=== PATIENT | female | born 1960 | race Caucasian/White ===

== ENCOUNTER 2019-10-25 02:05 | Inpatient (IN) ==
[2019-10-25] MEDS ORDERED: Naloxone 0.4 MG/ML INJ IVP PRN (04:42)
[2019-10-25] MEDS ORDERED: Midazolam HCl 50 MG/100 ML IV.SOLN IVC SCH (04:45)
[2019-10-25 04:58] LABS: ABG Base Excess -1 mEq/L (-2 to 3); ABG HCO3 26 mEq/L (21-27); ABG Oxygen Saturation 100 % (95-98); ABG PCO2 52 mmHg (35-45); ABG PO2 228 mmHg (85-104); ABG TCO2 27 mEq/L (20-26); Blood Gas Modality AF; Blood Gas VT 450 cc
[2019-10-25] MEDS: FentaNYL (PF) 1,000 MCG/100 ML IV.SOLN IVC SCH (06:00)
[2019-10-25 06:10] LABS: Basophils % 0.2 %; Eosinophils % 0.1 %; Hematocrit 29.8 % (35.3-44.9); Hemoglobin 9.4 g/dL (11.5-15.4); Immature Granulocytes % 0.3 % (0-4); Lymphocytes # 1.6 K/mcL (0.6-4.6); Lymphocytes % 13.1 %; Mean Corpuscular HGB Conc 31.5 g/dL (31.6-35.5); Mean Corpuscular Volume 82.3 fL (83.0-100.0); Mean Platelet Volume 8.9 fL (9.4-12.4); Monocytes % 7.9 %; Neutrophils # 9.7 K/mcL (1.6-8.9); Platelet Count 458 K/mcL (140-400); Red Blood Count 3.62 M/mcL (3.82-4.97); Red Cell Distribution Width 17.8 % (11.5-14.5); Segmented Neutrophils % 78.4 %; White Blood Count 12.4 K/mcL (4.3-11.1)
[2019-10-25 06:17] LABS: INR 0.9; Prothrombin Time 10.7 Seconds (9.4-12.1)
[2019-10-25 06:19] LABS: Activated Partial Thrombo Time 32.2 Seconds (26.0-36.0)
[2019-10-25] MEDS ORDERED: 0.9 % Sodium Chloride 1,000 ML IVC SCH ×2 (06:30→08:00)
[2019-10-25 06:49] LABS: Alanine Aminotransferase 14 Units/L (7-52); Albumin 4.1 g/dL (3.5-5.7); Albumin/Globulin Ratio 1.6 (1.1-2.2); Alkaline Phosphatase 107 Units/L (34-104); Aspartate Amino Transferase 17 Units/L (13-39); BUN/Creatinine Ratio 9 (6-26); Bilirubin,Total 0.4 mg/dL (0.3-1.0); Blood Urea Nitrogen 7 mg/dL (8-23); Calcium 8.6 mg/dL (8.6-10.3); Carbon Dioxide 25 mEq/L (23-29); Chloride 94 mEq/L (98-107); Globulin 2.5 g/dL (2.4-3.5); Glucose 159 mg/dL (70-105); Osmolality,Calculated 265 (280-300); Potassium 3.7 mEq/L (3.5-5.1); Sodium 127 mEq/L (136-145); Total Protein 6.6 g/dL (6.4-8.9); eGFR For African Americans > 60 (> 60); eGFR For Non-African Americans > 60 (> 60)
[2019-10-25] MEDS: Norepinephrine 4 MG/254 ML IV.SOLN IVC SCH (07:29)
[2019-10-25] MEDS: *HR* Heparin 5,000 UNIT/ML VIAL SQ SCH ×3 (07:43→21:48)
[2019-10-25 07:50] LABS: Adenovirus Not Detected (Not Detect); Bordetella Pertussis Not Detected (Not Detect); Chlamydophila pneumoniae Not Detected (Not Detect); Coronavirus 229E Not Detected (Not Detect); Coronavirus HKU1 Not Detected (Not Detect); Coronavirus NL63 Not Detected (Not Detect); Coronavirus OC43 Not Detected (Not Detect); Human Metapneumovirus Not Detected (Not Detect); Human Rhinovirus/Enterovirus Not Detected (Not Detect); Influenza A Subtype 2009 H1 Not Detected (Not Detect); Influenza B Not Detected (Not Detect); Mycoplasma pneumoniae Not Detected (Not Detect); Parainfluenza Virus 1 Not Detected (Not Detect); Parainfluenza Virus 2 Not Detected (Not Detect); Parainfluenza Virus 3 Not Detected (Not Detect); Parainfluenza Virus 4 Not Detected (Not Detect); Respiratory Syncytial Virus Not Detected (Not Detect)
[2019-10-25] MEDS ORDERED: Ipratropium/Albuterol Neb 3 ML IH PRN (08:48)
[2019-10-25] MEDS ORDERED: Albuterol 2.5 MG/3 ML NEBULIZER IH PRN (08:49)
[2019-10-25] MEDS ORDERED: MethylPREDNISolone 40 MG/ML VIAL IVP SCH (09:00)
[2019-10-25] MEDS: Dexmedetomidine HCl 400 MCG/100 ML MLS IVC SCH (09:56)
[2019-10-25] MEDS: Pantoprazole 40 MG VIAL IVP SCH (09:57)
[2019-10-25 10:47] LABS: Alanine Aminotransferase 12 Units/L (7-52); Albumin 3.7 g/dL (3.5-5.7); Albumin/Globulin Ratio 1.8 (1.1-2.2); Alkaline Phosphatase 93 Units/L (34-104); Aspartate Amino Transferase 15 Units/L (13-39); Bilirubin,Indirect 0.4 mg/dL (0.0-1.0); Bilirubin,Total 0.4 mg/dL (0.3-1.0); C-Reactive Protein < 5 mg/L (Less than 10); Creatine Kinase 113 Units/L (30-223); Ferritin < 8 ng/mL (10-120); Globulin 2.1 g/dL (2.4-3.5); Lactate Dehydrogenase 163 Units/L (140-271); Sodium 130 mEq/L (136-145); Total Protein 5.8 g/dL (6.4-8.9)
[2019-10-25] MEDS ORDERED: Artificial Tears SOLN 15 ML BOTTLE BOTH EYES PRN (10:50)
[2019-10-25 11:02] LABS: Lipase 7 Units/L (11-82)
[2019-10-25 11:16] LABS: Prothrombin Time 11.1 Seconds (9.4-12.1)
[2019-10-25 11:18] LABS: Activated Partial Thrombo Time 30.7 Seconds (26.0-36.0)
[2019-10-25] MEDS: Ipratropium/Albuterol Neb 3 ML IH SCH ×3 (11:34→21:21)
[2019-10-25] MEDS: Budesonide/Formoterol 80/4.5 1 PUFF INH IH SCH ×2 (11:34→21:21)
[2019-10-25] MEDS: Artificial Tears SOLN 15 ML BOTTLE BOTH EYES SCH ×4 (12:25→23:35)
[2019-10-25 13:09] LABS: BUN/Creatinine Ratio 8 (6-26); Blood Urea Nitrogen 7 mg/dL (8-23); Calcium 8.6 mg/dL (8.6-10.3); Carbon Dioxide 27 mEq/L (23-29); Chloride 98 mEq/L (98-107); Glucose 85 mg/dL (70-105); Osmolality,Calculated 267 (280-300); Potassium 3.8 mEq/L (3.5-5.1); Sodium 130 mEq/L (136-145); eGFR For African Americans > 60 (> 60); eGFR For Non-African Americans > 60 (> 60)
[2019-10-25] MEDS: Piperacillin/Tazobactam 3.375 GM in 0.9 % Sodium Chloride Mini Bag 100 ML IVPB SCH ×2 (16:18→23:34)
[2019-10-25] MEDS: Chlorhexidine Rinse 15 ML MOUTHWASH MM SCH (19:33)
[2019-10-25] MEDS: Isovue-370 500 ML BOTTLE IVP ONE (21:12)
[2019-10-26] MEDS: Artificial Tears SOLN 15 ML BOTTLE BOTH EYES SCH ×2 (02:41→07:42)
[2019-10-26] MEDS: Dexmedetomidine HCl 400 MCG/100 ML MLS IVC SCH (02:42)
[2019-10-26] MEDS: Ipratropium/Albuterol Neb 3 ML IH SCH ×4 (03:22→22:42)
[2019-10-26] MEDS: Norepinephrine 4 MG/254 ML IV.SOLN IVC SCH (03:39)
[2019-10-26] MEDS: FentaNYL (PF) 1,000 MCG/100 ML IV.SOLN IVC SCH (03:40)
[2019-10-26 03:45] LABS: Basophils # 0.1 K/mcL (0.0-0.2); Basophils % 0.4 %; Eosinophils % 0.1 %; Hematocrit 29.5 % (35.3-44.9); Hemoglobin 9.4 g/dL (11.5-15.4); Immature Granulocytes % 0.3 % (0-4); Lymphocytes # 0.9 K/mcL (0.6-4.6); Lymphocytes % 5.9 %; Mean Corpuscular HGB Conc 31.9 g/dL (31.6-35.5); Mean Corpuscular Hemoglobin 26.3 pg (28.0-33.3); Mean Corpuscular Volume 82.4 fL (83.0-100.0); Mean Platelet Volume 8.9 fL (9.4-12.4); Monocytes # 1.1 K/mcL (0.0-1.3); Monocytes % 7.2 %; Neutrophils # 13.4 K/mcL (1.6-8.9); Platelet Count 378 K/mcL (140-400); Red Blood Count 3.58 M/mcL (3.82-4.97); Red Cell Distribution Width 18.1 % (11.5-14.5); Segmented Neutrophils % 86.1 %; White Blood Count 15.5 K/mcL (4.3-11.1)
[2019-10-26 04:05] LABS: Alanine Aminotransferase 14 Units/L (7-52); Albumin 3.8 g/dL (3.5-5.7); Albumin/Globulin Ratio 1.4 (1.1-2.2); Alkaline Phosphatase 97 Units/L (34-104); Aspartate Amino Transferase 15 Units/L (13-39); BUN/Creatinine Ratio 8 (6-26); Bilirubin,Total 0.4 mg/dL (0.3-1.0); Blood Urea Nitrogen 6 mg/dL (8-23); Calcium 8.6 mg/dL (8.6-10.3); Carbon Dioxide 23 mEq/L (23-29); Chloride 97 mEq/L (98-107); Globulin 2.8 g/dL (2.4-3.5); Glucose 132 mg/dL (70-105); Magnesium 1.6 mg/dL (1.6-2.6); Osmolality,Calculated 269 (280-300); Phosphorous 3.6 mg/dL (2.7-4.5); Potassium 3.4 mEq/L (3.5-5.1); Sodium 130 mEq/L (136-145); Total Protein 6.6 g/dL (6.4-8.9); eGFR For African Americans > 60 (> 60); eGFR For Non-African Americans > 60 (> 60)
[2019-10-26 04:24] LABS: ABG Base Excess 2 mEq/L (-2 to 3); ABG HCO3 27 mEq/L (21-27); ABG Oxygen Saturation 94 % (95-98); ABG PCO2 44 mmHg (35-45); ABG PO2 71 mmHg (85-104); ABG TCO2 29 mEq/L (20-26); Blood Gas Modality AF; Blood Gas VT 450 cc
[2019-10-26] MEDS: *HR* Heparin 5,000 UNIT/ML VIAL SQ SCH ×3 (05:05→23:25)
[2019-10-26] MEDS: Chlorhexidine Rinse 15 ML MOUTHWASH MM SCH (07:41)
[2019-10-26] MEDS: Pantoprazole 40 MG VIAL IVP SCH (07:41)
[2019-10-26] MEDS: Piperacillin/Tazobactam 3.375 GM in 0.9 % Sodium Chloride Mini Bag 100 ML IVPB SCH ×2 (07:42→17:04)
[2019-10-26] MEDS: Budesonide/Formoterol 80/4.5 1 PUFF INH IH SCH ×2 (09:41→22:42)
[2019-10-26 16:02] LABS: Bilirubin,Urine Negative (Negative); Blood,Urine Moderate (Negative); Clarity,Urine Cloudy (Clear); Color,Urine Yellow (Yellow); Glucose,Urine (UA) Normal (Normal); Ketones,Urine 40 mg/dL (Negative); Leukocyte Esterase,Urine Trace (Negative); Nitrite,Urine Negative (Negative); PH,Urine 6.5 pH Units (5.0-8.0); Protein,Urine 30 mg/dL (Neg-Trace); Specific Gravity,Urine 1.023 (1.010-1.025); Urobilinogen,Urine Normal (Normal)
[2019-10-26 16:19] LABS: Hyaline Casts,Urine None Seen per lpf (None-Few); Squamous Epithelial Cell,Urine Few per lpf (None-Few); WBC,Urine 0-3 per hpf (0-3)
[2019-10-26 16:20] LABS: Bacteria,Urine Few per hpf (None-Few)
[2019-10-26] MEDS ORDERED: Acetaminophen/Butalbital/CaffeineTABLET PO PRN (16:43)
[2019-10-26 17:46] LABS: Thyroid Stimulating Hormone 0.527 mcIU/mL (0.340-5.600)
[2019-10-26] MEDS ORDERED: MOMETASONE IH SCH (21:00)
[2019-10-26] MEDS ORDERED: FORMOTEROL IH SCH (21:00)
[2019-10-26] MEDS ORDERED: [UNRECOGNIZED DRUG - OTHER] IH SCH (21:00)
[2019-10-26] MEDS: Gabapentin 300 MG CAPSULE PO SCH (21:59)
[2019-10-27] MEDS: Piperacillin/Tazobactam 3.375 GM in 0.9 % Sodium Chloride Mini Bag 100 ML IVPB SCH ×4 (00:01→23:34)
[2019-10-27] MEDS: Ipratropium/Albuterol Neb 3 ML IH SCH ×4 (03:43→22:49)
[2019-10-27 03:45] LABS: Basophils # 0.1 K/mcL (0.0-0.2); Basophils % 0.3 %; Eosinophils # 0.3 K/mcL (0.0-0.6); Hematocrit 30.2 % (35.3-44.9); Hemoglobin 9.8 g/dL (11.5-15.4); Immature Granulocytes % 0.4 % (0-4); Lymphocytes # 1.3 K/mcL (0.6-4.6); Lymphocytes % 7.4 %; Mean Corpuscular HGB Conc 32.5 g/dL (31.6-35.5); Mean Corpuscular Hemoglobin 26.2 pg (28.0-33.3); Mean Corpuscular Volume 80.7 fL (83.0-100.0); Mean Platelet Volume 8.7 fL (9.4-12.4); Monocytes # 1.7 K/mcL (0.0-1.3); Monocytes % 9.8 %; Neutrophils # 13.7 K/mcL (1.6-8.9); Platelet Count 422 K/mcL (140-400); Red Blood Count 3.74 M/mcL (3.82-4.97); Red Cell Distribution Width 18.4 % (11.5-14.5); Segmented Neutrophils % 80.1 %; White Blood Count 17.1 K/mcL (4.3-11.1)
[2019-10-27 04:05] LABS: BUN/Creatinine Ratio 16 (6-26); Blood Urea Nitrogen 12 mg/dL (8-23); Calcium 9.7 mg/dL (8.6-10.3); Carbon Dioxide 22 mEq/L (23-29); Chloride 97 mEq/L (98-107); Glucose 92 mg/dL (70-105); Magnesium 1.8 mg/dL (1.6-2.6); Osmolality,Calculated 275 (280-300); Phosphorous 3.7 mg/dL (2.7-4.5); Potassium 3.4 mEq/L (3.5-5.1); Sodium 133 mEq/L (136-145); eGFR For African Americans > 60 (> 60); eGFR For Non-African Americans > 60 (> 60)
[2019-10-27] MEDS: *HR* Heparin 5,000 UNIT/ML VIAL SQ SCH ×3 (06:02→19:38)
[2019-10-27] MEDS ORDERED: NON-FORMULARY MEDICATION 1 EACH EACH (Omeprazole [Prilosec] 40 MG) PO SCH (09:00)
[2019-10-27] MEDS ORDERED: Multivit/Ca/Min/Fe/FA 1 TAB TABLET PO SCH (09:00)
[2019-10-27] MEDS ORDERED: Loratadine 10 MG TABLET PO SCH (09:00)
[2019-10-27] MEDS: Pantoprazole 40 MG VIAL IVP SCH (09:35)
[2019-10-27] MEDS: Budesonide/Formoterol 80/4.5 1 PUFF INH IH SCH ×2 (09:42→22:49)
[2019-10-27] MEDS ORDERED: diazePAM 10 MG/2 ML SYRINGE IVP ONE ×2 (11:09→12:15)
[2019-10-27] MEDS: Gabapentin 300 MG CAPSULE PO SCH ×3 (11:21→19:37)
[2019-10-27] MEDS ORDERED: cefTRIAXone 1,000 MG in 0.9 % Sodium Chloride Mini Bag 100 ML IVPB ONE (12:41)
[2019-10-27] MEDS ORDERED: Acyclovir 500 MG in D5% in Water 100 ML IVPB SCH (13:00)
[2019-10-27 13:09] LABS: Appearance,CSF Clear (Clear); Red Blood Cell,CSF < 2000 RBC/mcL
[2019-10-27] MEDS ORDERED: Albuterol 2.5 MG/3 ML NEBULIZER IH PRN (13:23)
[2019-10-27] MEDS ORDERED: Naloxone 0.4 MG/ML INJ IVP PRN (13:23)
[2019-10-27 13:31] LABS: Glucose,CSF 66 mg/dL (40-70); Total Protein,CSF 48 mg/dL (15-45)
[2019-10-27] MEDS ORDERED: Potassium Chloride 40 MEQ, Lidocaine 1% 2 ML in 0.9 % Sodium Chloride 500 ML IVPB ONE (14:17)
[2019-10-27] MEDS: *HR* Metoprolol 5 MG/5 ML VIAL IVP PRN (14:17)
[2019-10-27] MEDS ORDERED: *HR* Metoprolol 5 MG/5 ML VIAL IVP ONE (14:20)
[2019-10-27] MEDS: D5% in Lactated Ringers 1,000 ML IVC SCH (14:33)
[2019-10-27 23:26] LABS: Hematocrit 28.8 % (35.3-44.9); Hemoglobin 9.1 g/dL (11.5-15.4)
[2019-10-28] MEDS: D5% in Lactated Ringers 1,000 ML IVC SCH ×3 (03:13→23:11)
[2019-10-28] MEDS: Ipratropium/Albuterol Neb 3 ML IH SCH ×4 (03:39→22:00)
[2019-10-28 05:44] LABS: Basophils # 0.1 K/mcL (0.0-0.2); Basophils % 0.5 %; Eosinophils # 0.1 K/mcL (0.0-0.6); Eosinophils % 0.8 %; Hematocrit 27.8 % (35.3-44.9); Hemoglobin 8.7 g/dL (11.5-15.4); Immature Granulocytes % 0.3 % (0-4); Lymphocytes # 1.4 K/mcL (0.6-4.6); Lymphocytes % 11.1 %; Mean Corpuscular HGB Conc 31.3 g/dL (31.6-35.5); Mean Corpuscular Hemoglobin 25.7 pg (28.0-33.3); Mean Corpuscular Volume 82.2 fL (83.0-100.0); Mean Platelet Volume 8.6 fL (9.4-12.4); Monocytes # 1.3 K/mcL (0.0-1.3); Monocytes % 10.4 %; Neutrophils # 9.9 K/mcL (1.6-8.9); Platelet Count 385 K/mcL (140-400); Red Blood Count 3.38 M/mcL (3.82-4.97); Red Cell Distribution Width 18.3 % (11.5-14.5); Segmented Neutrophils % 76.9 %; White Blood Count 12.8 K/mcL (4.3-11.1)
[2019-10-28 06:04] LABS: Alanine Aminotransferase 16 Units/L (7-52); Albumin 3.8 g/dL (3.5-5.7); Albumin/Globulin Ratio 1.4 (1.1-2.2); Alkaline Phosphatase 95 Units/L (34-104); Aspartate Amino Transferase 32 Units/L (13-39); BUN/Creatinine Ratio 20 (6-26); Bilirubin,Total 0.6 mg/dL (0.3-1.0); Blood Urea Nitrogen 14 mg/dL (8-23); Calcium 9.3 mg/dL (8.6-10.3); Carbon Dioxide 24 mEq/L (23-29); Chloride 106 mEq/L (98-107); Globulin 2.8 g/dL (2.4-3.5); Glucose 124 mg/dL (70-105); Magnesium 1.9 mg/dL (1.6-2.6); Osmolality,Calculated 290 (280-300); Phosphorous 2.9 mg/dL (2.7-4.5); Potassium 3.3 mEq/L (3.5-5.1); Sodium 139 mEq/L (136-145); Total Protein 6.6 g/dL (6.4-8.9); eGFR For African Americans > 60 (> 60); eGFR For Non-African Americans > 60 (> 60)
[2019-10-28] MEDS: Pantoprazole 40 MG VIAL IVP SCH (09:09)
[2019-10-28] MEDS: Piperacillin/Tazobactam 3.375 GM in 0.9 % Sodium Chloride Mini Bag 100 ML IVPB SCH ×3 (09:09→23:12)
[2019-10-28] MEDS: Haloperidol Lactate 5 MG/ML VIAL IVP PRN ×2 (09:11→20:34)
[2019-10-28] MEDS: Multivit/Ca/Min/Fe/FA 1 TAB TABLET PO SCH (09:12)
[2019-10-28] MEDS: Gabapentin 300 MG CAPSULE PO SCH (09:12)
[2019-10-28] MEDS: Loratadine 10 MG TABLET PO SCH (09:13)
[2019-10-28 10:56] LABS: Hemoglobin 8.7 g/dL (11.5-15.4)
[2019-10-28] MEDS: Budesonide/Formoterol 80/4.5 1 PUFF INH IH SCH ×2 (10:59→22:00)
[2019-10-28] MEDS: Thiamine (B-1) 100 MG in 0.9 % Sodium Chloride 50 ML IVPB SCH (13:58)
[2019-10-29] MEDS: *HR* Metoprolol 5 MG/5 ML VIAL IVP PRN (03:33)
[2019-10-29] MEDS: Haloperidol Lactate 5 MG/ML VIAL IVP PRN ×2 (03:33→21:38)
[2019-10-29 03:50] LABS: VBG HCO3 24 mEq/L (21-27); VBG PCO2 35 mmHg (41-51); VBG PH 7.46 pH Units (7.32-7.42); VBG PO2 117 mmHg (25-50)
[2019-10-29 03:58] LABS: Basophils # 0.1 K/mcL (0.0-0.2); Basophils % 0.7 %; Eosinophils # 0.2 K/mcL (0.0-0.6); Eosinophils % 1.4 %; Hematocrit 30.7 % (35.3-44.9); Hemoglobin 9.6 g/dL (11.5-15.4); Immature Granulocytes % 0.5 % (0-4); Lymphocytes # 1.7 K/mcL (0.6-4.6); Lymphocytes % 11.9 %; Mean Corpuscular HGB Conc 31.3 g/dL (31.6-35.5); Mean Corpuscular Hemoglobin 25.7 pg (28.0-33.3); Mean Corpuscular Volume 82.1 fL (83.0-100.0); Mean Platelet Volume 9.1 fL (9.4-12.4); Monocytes # 1.3 K/mcL (0.0-1.3); Monocytes % 9.3 %; Neutrophils # 10.5 K/mcL (1.6-8.9); Platelet Count 426 K/mcL (140-400); Red Blood Count 3.74 M/mcL (3.82-4.97); Red Cell Distribution Width 18.3 % (11.5-14.5); Segmented Neutrophils % 76.2 %; White Blood Count 13.8 K/mcL (4.3-11.1)
[2019-10-29 04:15] LABS: Alanine Aminotransferase 19 Units/L (7-52); Albumin 3.9 g/dL (3.5-5.7); Albumin/Globulin Ratio 1.2 (1.1-2.2); Alkaline Phosphatase 93 Units/L (34-104); Aspartate Amino Transferase 27 Units/L (13-39); BUN/Creatinine Ratio 13 (6-26); Bilirubin,Total 0.5 mg/dL (0.3-1.0); Blood Urea Nitrogen 9 mg/dL (8-23); Calcium 9.5 mg/dL (8.6-10.3); Carbon Dioxide 23 mEq/L (23-29); Chloride 103 mEq/L (98-107); Globulin 3.2 g/dL (2.4-3.5); Glucose 140 mg/dL (70-105); Magnesium 1.6 mg/dL (1.6-2.6); Osmolality,Calculated 285 (280-300); Potassium 3.4 mEq/L (3.5-5.1); Sodium 137 mEq/L (136-145); Total Protein 7.1 g/dL (6.4-8.9); eGFR For African Americans > 60 (> 60); eGFR For Non-African Americans > 60 (> 60)
[2019-10-29] MEDS: Ipratropium/Albuterol Neb 3 ML IH SCH (04:20)
[2019-10-29] MEDS ORDERED: DilTIAZem 50 MG/50 ML IV.SOLN IVC SCH (04:45)
[2019-10-29 04:58] LABS: Folate > 22.3 ng/mL (3.0-16.0); Vitamin B12 609 pg/mL (250-1100)
[2019-10-29] MEDS ORDERED: D5% in 0.9% NACL 1,000 ML IVC SCH (05:00)
[2019-10-29] MEDS: *HR* Enoxaparin 40 MG/0.4 ML SYRINGE SQ SCH (05:04)
[2019-10-29] MEDS: Loratadine 10 MG TABLET PO SCH (07:47)
[2019-10-29] MEDS: Multivit/Ca/Min/Fe/FA 1 TAB TABLET PO SCH (07:48)
[2019-10-29] MEDS: Piperacillin/Tazobactam 3.375 GM in 0.9 % Sodium Chloride Mini Bag 100 ML IVPB SCH ×3 (08:00→23:19)
[2019-10-29] MEDS: Pantoprazole 40 MG VIAL IVP SCH (08:01)
[2019-10-29] MEDS: Potassium Chloride 40 MEQ in D5% in 0.45% NACL 1,000 ML IVC SCH ×2 (08:09→21:38)
[2019-10-29] MEDS: Thiamine (B-1) 100 MG in 0.9 % Sodium Chloride 50 ML IVPB SCH (09:04)
[2019-10-29] MEDS: Budesonide/Formoterol 80/4.5 1 PUFF INH IH SCH ×2 (09:57→19:32)
[2019-10-29] MEDS: *HR* Metoprolol 5 MG/5 ML VIAL IVP SCH ×3 (16:42→23:19)
[2019-10-29] MEDS: Acetaminophen/Butalbital/CaffeineTABLET PO PRN (22:26)
[2019-10-30] MEDS: *HR* Enoxaparin 40 MG/0.4 ML SYRINGE SQ SCH (04:52)
[2019-10-30] MEDS: *HR* Metoprolol 5 MG/5 ML VIAL IVP SCH ×3 (04:52→18:38)
[2019-10-30] MEDS: Acetaminophen/Butalbital/CaffeineTABLET PO PRN (04:52)
[2019-10-30] MEDS: Multivit/Ca/Min/Fe/FA 1 TAB TABLET PO SCH (08:02)
[2019-10-30] MEDS: Loratadine 10 MG TABLET PO SCH (08:02)
[2019-10-30] MEDS: Pantoprazole 40 MG VIAL IVP SCH (08:03)
[2019-10-30] MEDS: Piperacillin/Tazobactam 3.375 GM in 0.9 % Sodium Chloride Mini Bag 100 ML IVPB SCH ×2 (08:03→18:39)
[2019-10-30] MEDS: Thiamine (B-1) 100 MG TABLET PO SCH (08:37)
[2019-10-30 09:00] LABS: Basophils # 0.1 K/mcL (0.0-0.2); Eosinophils # 0.3 K/mcL (0.0-0.6); Eosinophils % 2.7 %; Hematocrit 32.6 % (35.3-44.9); Immature Granulocytes % 0.2 % (0-4); Lymphocytes # 1.6 K/mcL (0.6-4.6); Lymphocytes % 16.6 %; Mean Corpuscular HGB Conc 30.7 g/dL (31.6-35.5); Mean Corpuscular Hemoglobin 25.6 pg (28.0-33.3); Mean Corpuscular Volume 83.6 fL (83.0-100.0); Monocytes # 0.8 K/mcL (0.0-1.3); Monocytes % 8.1 %; Platelet Count 457 K/mcL (140-400); Red Cell Distribution Width 18.7 % (11.5-14.5); Segmented Neutrophils % 71.4 %; White Blood Count 9.8 K/mcL (4.3-11.1)
[2019-10-30 09:01] LABS: Alanine Aminotransferase 16 Units/L (7-52); Albumin 3.9 g/dL (3.5-5.7); Albumin/Globulin Ratio 1.4 (1.1-2.2); Alkaline Phosphatase 85 Units/L (34-104); Aspartate Amino Transferase 17 Units/L (13-39); BUN/Creatinine Ratio 16 (6-26); Bilirubin,Total 0.4 mg/dL (0.3-1.0); Blood Urea Nitrogen 10 mg/dL (8-23); Calcium 9.5 mg/dL (8.6-10.3); Carbon Dioxide 22 mEq/L (23-29); Chloride 104 mEq/L (98-107); Globulin 2.8 g/dL (2.4-3.5); Glucose 119 mg/dL (70-105); Osmolality,Calculated 280 (280-300); Potassium 3.7 mEq/L (3.5-5.1); Sodium 135 mEq/L (136-145); Total Protein 6.7 g/dL (6.4-8.9); eGFR For African Americans > 60 (> 60); eGFR For Non-African Americans > 60 (> 60)
[2019-10-30] MEDS: Budesonide/Formoterol 80/4.5 1 PUFF INH IH SCH ×2 (10:47→20:37)
[2019-10-31] MEDS: Piperacillin/Tazobactam 3.375 GM in 0.9 % Sodium Chloride Mini Bag 100 ML IVPB SCH ×2 (00:30→08:47)
[2019-10-31] MEDS: *HR* Metoprolol 5 MG/5 ML VIAL IVP SCH ×3 (00:30→14:19)
[2019-10-31 01:43] LABS: Hemoglobin 9.7 g/dL (11.5-15.4); Mean Corpuscular HGB Conc 30.3 g/dL (31.6-35.5); Mean Corpuscular Volume 85.8 fL (83.0-100.0); Mean Platelet Volume 8.8 fL (9.4-12.4); Platelet Count 460 K/mcL (140-400); Red Blood Count 3.73 M/mcL (3.82-4.97); Red Cell Distribution Width 18.7 % (11.5-14.5); White Blood Count 11.1 K/mcL (4.3-11.1)
[2019-10-31 02:02] LABS: BUN/Creatinine Ratio 19 (6-26); Blood Urea Nitrogen 13 mg/dL (8-23); Calcium 9.8 mg/dL (8.6-10.3); Carbon Dioxide 21 mEq/L (23-29); Chloride 103 mEq/L (98-107); Glucose 94 mg/dL (70-105); Osmolality,Calculated 280 (280-300); Potassium 3.5 mEq/L (3.5-5.1); Sodium 135 mEq/L (136-145); eGFR For African Americans > 60 (> 60); eGFR For Non-African Americans > 60 (> 60)
[2019-10-31] MEDS: *HR* Enoxaparin 40 MG/0.4 ML SYRINGE SQ SCH (06:02)
[2019-10-31] MEDS: Acetaminophen/Butalbital/CaffeineTABLET PO PRN ×3 (06:47→20:00)
[2019-10-31] MEDS: Loratadine 10 MG TABLET PO SCH (08:47)
[2019-10-31] MEDS: Thiamine (B-1) 100 MG TABLET PO SCH (08:47)
[2019-10-31] MEDS: Multivit/Ca/Min/Fe/FA 1 TAB TABLET PO SCH (08:47)
[2019-10-31] MEDS: Pantoprazole 40 MG VIAL IVP SCH (08:47)
[2019-10-31] MEDS: Budesonide/Formoterol 80/4.5 1 PUFF INH IH SCH ×2 (10:24→20:14)
[2019-11-01] MEDS ORDERED: Ibuprofen 600 MG TABLET PO ONE (00:34)
[2019-11-01] MEDS ORDERED: *HR* OxyCODONE Immed Rel 5 MG TABLET PO ONE (02:09)
[2019-11-01] MEDS: *HR* Enoxaparin 40 MG/0.4 ML SYRINGE SQ SCH (05:14)
[2019-11-01] MEDS ORDERED: Acetaminophen IV 1,000 MG/100 ML INFUS..BTL IVPB ONE (06:03)
[2019-11-01] MEDS: Budesonide/Formoterol 80/4.5 1 PUFF INH IH SCH (07:54)
[2019-11-01] MEDS: Loratadine 10 MG TABLET PO SCH (08:19)
[2019-11-01] MEDS: Thiamine (B-1) 100 MG TABLET PO SCH (08:20)
[2019-11-01] MEDS: Multivit/Ca/Min/Fe/FA 1 TAB TABLET PO SCH (08:20)
[2019-11-01 11:44] VITALS: BP 121/76
[2019-11-01] MEDS: Acetaminophen/Butalbital/CaffeineTABLET PO PRN (12:27)
== END 2019-11-01 15:32 | DRG 133 ==
LOC: 2NENU 04:23 → SUATTDRO 04:23 → ICNU 11:36 → 3NENU 10-27 17:35 → 2ANU 10-30 10:57
PROVIDERS: ADMIT Student in an Organized Health Care Education/Training Program; ATTEND Internal Medicine

== ENCOUNTER 2020-01-27 14:43 | Inpatient (IN) ==
[2020-01-27] MEDS ORDERED: Naloxone 0.4 MG/ML INJ IVP PRN (16:52)
[2020-01-27] MEDS ORDERED: Ipratropium/Albuterol Neb 3 ML IH PRN (17:24)
[2020-01-27] MEDS: Metoprolol XL (24 HR) Succ 50 MG TAB.ER.24H PO SCH (18:15)
[2020-01-27] MEDS: Nicotine 7 MG PATCH.TD24 TD SCH (18:15)
[2020-01-27] MEDS: Acetaminophen IV 1,000 MG/100 ML INFUS..BTL IVPB SCH (18:15)
[2020-01-27] MEDS: clonazePAM 1 MG TABLET PO SCH ×2 (18:15→20:51)
[2020-01-27] MEDS: Budesonide/Formoterol 160/4.5 1 PUFF INH IH SCH (20:06)
[2020-01-27] MEDS: *HR* Heparin 5,000 UNIT/ML VIAL SQ SCH (20:54)
[2020-01-27] MEDS: Gabapentin 300 MG CAPSULE PO SCH (20:54)
[2020-01-28] MEDS: Acetaminophen IV 1,000 MG/100 ML INFUS..BTL IVPB SCH ×2 (00:43→05:38)
[2020-01-28 03:06] LABS: Basophils % 0.5 %; Eosinophils % 0.5 %; Hematocrit 26.6 % (35.3-44.9); Hemoglobin 8.5 g/dL (11.5-15.4); Immature Granulocytes % 0.1 % (0-4); Lymphocytes # 2.6 K/mcL (0.6-4.6); Lymphocytes % 34.5 %; Mean Corpuscular Hemoglobin 25.4 pg (28.0-33.3); Mean Corpuscular Volume 79.6 fL (83.0-100.0); Mean Platelet Volume 9.1 fL (9.4-12.4); Monocytes # 0.7 K/mcL (0.0-1.3); Monocytes % 9.7 %; Neutrophils # 4.1 K/mcL (1.6-8.9); Platelet Count 339 K/mcL (140-400); Red Blood Count 3.34 M/mcL (3.82-4.97); Segmented Neutrophils % 54.7 %; White Blood Count 7.4 K/mcL (4.3-11.1)
[2020-01-28 03:25] LABS: BUN/Creatinine Ratio 9 (6-26); Blood Urea Nitrogen 9 mg/dL (8-23); Calcium 8.9 mg/dL (8.6-10.3); Carbon Dioxide 23 mEq/L (23-29); Chloride 95 mEq/L (98-107); Glucose 97 mg/dL (70-105); Osmolality,Calculated 259 (280-300); Potassium 3.9 mEq/L (3.5-5.1); Sodium 125 mEq/L (136-145); eGFR For African Americans > 60 (> 60); eGFR For Non-African Americans 56 (> 60)
[2020-01-28] MEDS: *HR* Heparin 5,000 UNIT/ML VIAL SQ SCH ×3 (05:17→22:08)
[2020-01-28] MEDS: Budesonide/Formoterol 160/4.5 1 PUFF INH IH SCH ×2 (08:18→20:00)
[2020-01-28] MEDS: clonazePAM 1 MG TABLET PO SCH ×3 (08:21→22:08)
[2020-01-28] MEDS: Metoprolol XL (24 HR) Succ 50 MG TAB.ER.24H PO SCH (08:21)
[2020-01-28] MEDS: Nicotine 7 MG PATCH.TD24 TD SCH (08:21)
[2020-01-28] MEDS: Gabapentin 300 MG CAPSULE PO SCH ×3 (08:21→22:08)
[2020-01-28] MEDS: Ringers Solution, Lactated 1,000 ML IVC SCH (09:36)
[2020-01-28 11:21] LABS: % Iron Saturation 18 % (15-50); Iron 79 mcg/dL (50-170); Transferrin 315 mg/dL (203-362)
[2020-01-28 11:39] LABS: Ferritin < 8 ng/mL (10-120)
[2020-01-28] MEDS: Acetaminophen/Butalbital/CaffeineTABLET PO PRN (17:15)
[2020-01-29] MEDS: Acetaminophen/Butalbital/CaffeineTABLET PO PRN ×3 (00:26→13:49)
[2020-01-29 01:51] LABS: Hematocrit 29.7 % (35.3-44.9); Hemoglobin 9.4 g/dL (11.5-15.4); Mean Corpuscular HGB Conc 31.6 g/dL (31.6-35.5); Mean Corpuscular Hemoglobin 25.2 pg (28.0-33.3); Mean Corpuscular Volume 79.6 fL (83.0-100.0); Mean Platelet Volume 9.7 fL (9.4-12.4); Platelet Count 321 K/mcL (140-400); Red Blood Count 3.73 M/mcL (3.82-4.97)
[2020-01-29 01:57] LABS: BUN/Creatinine Ratio 9 (6-26); Blood Urea Nitrogen 7 mg/dL (8-23); Calcium 8.9 mg/dL (8.6-10.3); Carbon Dioxide 21 mEq/L (23-29); Chloride 97 mEq/L (98-107); Glucose 87 mg/dL (70-105); Osmolality,Calculated 265 (280-300); Potassium 4.4 mEq/L (3.5-5.1); Sodium 129 mEq/L (136-145); White Blood Count 13.7 K/mcL (4.3-11.1); eGFR For African Americans > 60 (> 60); eGFR For Non-African Americans > 60 (> 60)
[2020-01-29] MEDS: Ringers Solution, Lactated 1,000 ML IVC SCH ×2 (03:43→05:54)
[2020-01-29] MEDS: *HR* Heparin 5,000 UNIT/ML VIAL SQ SCH ×2 (06:21→13:48)
[2020-01-29] MEDS: Budesonide/Formoterol 160/4.5 1 PUFF INH IH SCH ×2 (08:10→21:38)
[2020-01-29] MEDS: Gabapentin 300 MG CAPSULE PO SCH ×2 (08:12→13:49)
[2020-01-29] MEDS: clonazePAM 1 MG TABLET PO SCH ×2 (08:12→13:49)
[2020-01-29] MEDS: Metoprolol XL (24 HR) Succ 50 MG TAB.ER.24H PO SCH (08:13)
[2020-01-29] MEDS: Nicotine 7 MG PATCH.TD24 TD SCH (08:13)
[2020-01-29] MEDS ORDERED: Iron Sucrose Complex 200 MG in 0.9 % Sodium Chloride 100 ML IVPB SCH (09:00)
[2020-01-29] MEDS ORDERED: Lidocaine/EPI 1:100k 1% 20 ML VIAL ONE (17:34)
[2020-01-29] MEDS ORDERED: *HR* Propofol 200 MG/20 ML VIAL IVP ONE (18:14)
[2020-01-29] MEDS ORDERED: *HR* Succinylcholine 200 MG/10 ML VIAL IVP ONE (18:14)
[2020-01-29] MEDS ORDERED: Lidocaine -MPF 2% 2 ML VIAL ONE (18:14)
[2020-01-29] MEDS ORDERED: *HR* Midazolam HCl 2 MG/2 ML VIAL ONE (18:14)
[2020-01-29] MEDS ORDERED: *HR* FentaNYL (PF) 100 MCG/2 ML VIAL ONE (18:14)
[2020-01-29] MEDS ORDERED: Ondansetron 4 MG/2 ML VIAL ONE (18:14)
[2020-01-29] MEDS ORDERED: *HR* Rocuronium Bromide 50 MG/5 ML VIAL ONE (19:28)
[2020-01-29] MEDS ORDERED: EPHEDrine 50 MG/ML VIAL ONE (19:52)
[2020-01-29] MEDS ORDERED: Ondansetron 4 MG/2 ML VIAL IVP ONE ×2 (21:38→22:39)
[2020-01-29] MEDS ORDERED: *HR* OxyCODONE Immed Rel 5 MG TABLET PO PRN ×2 (21:38→22:39)
[2020-01-29] MEDS ORDERED: *HR* Promethazine 25 MG/ML VIAL IVP PRN ×2 (21:38→22:39)
[2020-01-29] MEDS: *HR* HYDROmorphone PF 0.5 MG/0.5 ML SYRINGE IVP PRN ×2 (22:11→22:42)
[2020-01-29] MEDS ORDERED: Ipratropium/Albuterol Neb 3 ML IH PRN (22:39)
[2020-01-29] MEDS ORDERED: *HR* HYDROmorphone PF 0.5 MG/0.5 ML SYRINGE IVP PRN (22:39)
[2020-01-29] MEDS ORDERED: Naloxone 0.4 MG/ML INJ IVP PRN (22:39)
[2020-01-30] MEDS: CeFAZolin 2 GM/120 ML BAG IVPB SCH ×2 (02:40→11:42)
[2020-01-30] MEDS: Ringers Solution, Lactated 1,000 ML IVC SCH (02:49)
[2020-01-30 05:19] LABS: Hematocrit 27.7 % (35.3-44.9); Hemoglobin 8.5 g/dL (11.5-15.4); Mean Corpuscular HGB Conc 30.7 g/dL (31.6-35.5); Mean Corpuscular Hemoglobin 25.1 pg (28.0-33.3); Mean Corpuscular Volume 81.7 fL (83.0-100.0); Mean Platelet Volume 9.7 fL (9.4-12.4); Platelet Count 317 K/mcL (140-400); Red Blood Count 3.39 M/mcL (3.82-4.97); Red Cell Distribution Width 17.6 % (11.5-14.5); White Blood Count 11.9 K/mcL (4.3-11.1)
[2020-01-30 05:41] LABS: BUN/Creatinine Ratio 8 (6-26); Blood Urea Nitrogen 7 mg/dL (8-23); Carbon Dioxide 24 mEq/L (23-29); Chloride 95 mEq/L (98-107); Glucose 91 mg/dL (70-105); Osmolality,Calculated 266 (280-300); Potassium 3.9 mEq/L (3.5-5.1); Sodium 129 mEq/L (136-145); eGFR For African Americans > 60 (> 60); eGFR For Non-African Americans > 60 (> 60)
[2020-01-30] MEDS: Budesonide/Formoterol 160/4.5 1 PUFF INH IH SCH ×2 (07:16→19:45)
[2020-01-30] MEDS: Nicotine 7 MG PATCH.TD24 TD SCH (09:29)
[2020-01-30] MEDS: Metoprolol XL (24 HR) Succ 50 MG TAB.ER.24H PO SCH (09:29)
[2020-01-30] MEDS: Gabapentin 300 MG CAPSULE PO SCH ×3 (09:29→20:20)
[2020-01-30] MEDS: clonazePAM 1 MG TABLET PO SCH ×3 (09:29→20:20)
[2020-01-30] MEDS: Aspirin Enteric Coated 325 MG Tablet PO SCH (09:29)
[2020-01-30] MEDS: Iron Sucrose Complex 200 MG in 0.9 % Sodium Chloride 100 ML IVPB SCH (09:38)
[2020-01-30] MEDS: Acetaminophen/Butalbital/CaffeineTABLET PO PRN (10:43)
[2020-01-30] MEDS: Cholecalciferol (D-3) 1,000 UNIT (25MCG) TABLET PO SCH (14:42)
[2020-01-31] MEDS: Budesonide/Formoterol 160/4.5 1 PUFF INH IH SCH ×2 (08:13→20:25)
[2020-01-31] MEDS: Aspirin Enteric Coated 325 MG Tablet PO SCH (09:09)
[2020-01-31] MEDS: Cholecalciferol (D-3) 1,000 UNIT (25MCG) TABLET PO SCH (09:09)
[2020-01-31] MEDS: Metoprolol XL (24 HR) Succ 50 MG TAB.ER.24H PO SCH (09:09)
[2020-01-31] MEDS: Nicotine 7 MG PATCH.TD24 TD SCH (09:09)
[2020-01-31] MEDS: Gabapentin 300 MG CAPSULE PO SCH ×4 (09:09→23:54)
[2020-01-31] MEDS: clonazePAM 1 MG TABLET PO SCH ×5 (09:09→23:54)
[2020-01-31] MEDS: Iron Sucrose Complex 200 MG in 0.9 % Sodium Chloride 100 ML IVPB SCH (09:17)
[2020-01-31] MEDS: Ringers Solution, Lactated 1,000 ML IVC SCH (23:50)
[2020-01-31] MEDS: *HR* Heparin 5,000 UNIT/ML VIAL SQ SCH (23:54)
[2020-02-01] MEDS: Ringers Solution, Lactated 1,000 ML IVC SCH ×2 (05:16→17:21)
[2020-02-01] MEDS: Budesonide/Formoterol 160/4.5 1 PUFF INH IH SCH ×2 (07:49→20:15)
[2020-02-01 09:18] LABS: BUN/Creatinine Ratio 12 (6-26); Blood Urea Nitrogen 9 mg/dL (8-23); Carbon Dioxide 26 mEq/L (23-29); Chloride 93 mEq/L (98-107); Glucose 121 mg/dL (70-105); Osmolality,Calculated 268 (280-300); Sodium 129 mEq/L (136-145); eGFR For African Americans > 60 (> 60); eGFR For Non-African Americans > 60 (> 60)
[2020-02-01] MEDS: Metoprolol XL (24 HR) Succ 50 MG TAB.ER.24H PO SCH (09:35)
[2020-02-01] MEDS: Nicotine 7 MG PATCH.TD24 TD SCH (09:35)
[2020-02-01] MEDS: Iron Sucrose Complex 200 MG in 0.9 % Sodium Chloride 100 ML IVPB SCH (09:36)
[2020-02-01] MEDS: Aspirin Enteric Coated 325 MG Tablet PO SCH (09:36)
[2020-02-01] MEDS: clonazePAM 1 MG TABLET PO SCH ×3 (09:36→20:46)
[2020-02-01] MEDS: Cholecalciferol (D-3) 1,000 UNIT (25MCG) TABLET PO SCH (09:36)
[2020-02-01] MEDS: Gabapentin 300 MG CAPSULE PO SCH ×3 (09:36→20:46)
[2020-02-01 10:12] LABS: Basophils # 0.1 K/mcL (0.0-0.2); Basophils % 0.5 %; Eosinophils # 0.2 K/mcL (0.0-0.6); Eosinophils % 1.4 %; Hematocrit 25.6 % (35.3-44.9); Hemoglobin 7.9 g/dL (11.5-15.4); Immature Granulocytes % 0.4 % (0-4); Lymphocytes # 1.7 K/mcL (0.6-4.6); Lymphocytes % 15.7 %; Mean Corpuscular HGB Conc 30.9 g/dL (31.6-35.5); Mean Corpuscular Hemoglobin 25.1 pg (28.0-33.3); Mean Corpuscular Volume 81.3 fL (83.0-100.0); Mean Platelet Volume 9.3 fL (9.4-12.4); Monocytes # 1.2 K/mcL (0.0-1.3); Monocytes % 11.3 %; Neutrophils # 7.5 K/mcL (1.6-8.9); Platelet Count 371 K/mcL (140-400); Red Blood Count 3.15 M/mcL (3.82-4.97); Red Cell Distribution Width 18.3 % (11.5-14.5); Segmented Neutrophils % 70.7 %; White Blood Count 10.6 K/mcL (4.3-11.1)
[2020-02-01] MEDS: Potassium Chloride Elixir 20 MEQ/15 ML UDC PO SCH ×2 (11:17→14:26)
[2020-02-01] MEDS: Acetaminophen/Butalbital/CaffeineTABLET PO PRN (20:48)
[2020-02-01 21:39] LABS: Hematocrit 24.3 % (35.3-44.9); Hemoglobin 7.6 g/dL (11.5-15.4)
[2020-02-02 02:24] LABS: Hematocrit 24.6 % (35.3-44.9); Hemoglobin 7.5 g/dL (11.5-15.4); Mean Corpuscular HGB Conc 30.5 g/dL (31.6-35.5); Mean Corpuscular Hemoglobin 25.1 pg (28.0-33.3); Mean Corpuscular Volume 82.3 fL (83.0-100.0); Mean Platelet Volume 9.5 fL (9.4-12.4); Platelet Count 396 K/mcL (140-400); Red Blood Count 2.99 M/mcL (3.82-4.97); Red Cell Distribution Width 18.7 % (11.5-14.5); White Blood Count 7.9 K/mcL (4.3-11.1)
[2020-02-02 02:41] LABS: BUN/Creatinine Ratio 16 (6-26); Blood Urea Nitrogen 12 mg/dL (8-23); Calcium 8.9 mg/dL (8.6-10.3); Carbon Dioxide 24 mEq/L (23-29); Chloride 100 mEq/L (98-107); Glucose 121 mg/dL (70-105); Osmolality,Calculated 277 (280-300); Potassium 4.3 mEq/L (3.5-5.1); Sodium 133 mEq/L (136-145); eGFR For African Americans > 60 (> 60); eGFR For Non-African Americans > 60 (> 60)
[2020-02-02] MEDS: Budesonide/Formoterol 160/4.5 1 PUFF INH IH SCH (08:17)
[2020-02-02] MEDS: Acetaminophen/Butalbital/CaffeineTABLET PO PRN (08:28)
[2020-02-02] MEDS: Gabapentin 300 MG CAPSULE PO SCH (08:28)
[2020-02-02] MEDS: Metoprolol XL (24 HR) Succ 50 MG TAB.ER.24H PO SCH (08:29)
[2020-02-02] MEDS: Nicotine 7 MG PATCH.TD24 TD SCH (08:29)
[2020-02-02] MEDS: clonazePAM 1 MG TABLET PO SCH (08:29)
[2020-02-02] MEDS: Cholecalciferol (D-3) 1,000 UNIT (25MCG) TABLET PO SCH (08:29)
[2020-02-02 10:44] LABS: Hemoglobin 8.1 g/dL (11.5-15.4)
[2020-02-02 10:59] VITALS: BP 112/70
[2020-02-02] MEDS: Aspirin Enteric Coated 325 MG Tablet PO SCH (11:44)
== END 2020-02-02 13:48 | disposition home health service (06) | DRG 308 ==
LOC: 3NENU → SUATTDRO 01-28 10:57
PROVIDERS: ADMIT Internal Medicine; ATTEND Internal Medicine